=== PATIENT | female | born 1955 | race Caucasian/White ===

== ENCOUNTER 2017-10-24 05:48 | Day surgery (SDC) | payer BC ==
[2017-10-23 14:54] LABS: BASOPHILS % (AUTO) 0.5 % (0.0-2.0); EOSINOPHILS % (AUTO) 0.6 % (0.0-4.0); HEMATOCRIT 41.1 % (36-48); HEMOGLOBIN 13.6 g/dL (12.0-16.0); LYMPHOCYTES # (AUTO) 3.5 K/uL (1.0-5.5); LYMPHOCYTES % (AUTO) 45.5 % (20.5-51.5); MEAN CORPUSCULAR HEMOGLOBIN 30 pg (27-31); MEAN CORPUSCULAR HGB CONC 33 % (32-36); MEAN CORPUSCULAR VOLUME 90 fL (79.0-98.0); MONOCYTES # (AUTO) 0.7 K/uL (0.0-1.0); MONOCYTES % (AUTO) 8.7 % (1.7-9.3); NEUTROPHILS # (AUTO) 3.5 K/uL (1.8-7.7); NEUTROPHILS % (AUTO) 44.7 % (40.0-70.0); PLATELET COUNT (AUTO) 277 K/uL (130-430); RED BLOOD CELL COUNT(AUTO) 4.56 MIL/uL (4.2-6.2); RED CELL DISTRIBUTION WIDTH 12.5 % (9.0-15.0); WHITE BLOOD COUNT (AUTO) 7.7 K/uL (4.8-10.8)
[2017-10-23 15:28] LABS: ALBUMIN 4.1 g/dL (3.4-4.8); CALCIUM 9.8 mg/dL (8.4-11.0); CREATININE 0.78 mg/dL (0.55-1.30); POTASSIUM 3.9 mmol/L (3.5-5.1); TOTAL BILIRUBIN 0.3 mg/dL (0.0-1.0)
[2017-10-23 15:33] LABS: INR 0.9 (0.8-1.2); PROTHROMBIN TIME 9.6 SECS (9.5-12.5)
[2017-10-23 16:03] LABS: BILIRUBIN,URINE NEGATIVE (NEGATIVE); BLOOD, URINE NEGATIVE (NEGATIVE); CLARITY/URINE CLEAR (CLEAR); COLOR,URINE YELLOW (YELLOW); GLUCOSE,URINE NEGATIVE (NEGATIVE); KETONES,URINE NEGATIVE (NEGATIVE); LEUKOCYTE ESTERASE ,URINE NEGATIVE (NEGATIVE); NITRITE, URINE NEGATIVE (NEGATIVE); PROTEIN URINE NEGATIVE (NEGATIVE); UROBILINOGEN,URINE 0.2 (0.2-1.0)
[~2017-10-24] VITALS: Ht 172.7 cm; Wt 52.2 kg
[2017-10-24] MEDS ORDERED: CEFAZOLIN 2 GM IVPB PREMIX 50 ML IV ONE ×2 (06:53→11:00)
[2017-10-24] MEDS ORDERED: fentaNYL CITRATE/PF 100 MCG/2 ML AMP IVP ONE (07:13)
[2017-10-24] MEDS ORDERED: NORMAL SALINE 10 ML VIAL IVP ONE (07:13)
[2017-10-24] MEDS ORDERED: METOCLOPRAMIDE HCL 10 MG/2 ML VIAL IVP ONE (07:13)
[2017-10-24] MEDS ORDERED: DEXAMETHASONE SOD PHOSPHATE 4 MG/ML VIAL IVP ONE (07:13)
[2017-10-24] MEDS ORDERED: NS IRRIG SOLN 1000 ML IR ONE (07:13)
[2017-10-24] MEDS ORDERED: LR 1,000 ML IV.SOLN IV ONE (07:13)
[2017-10-24] MEDS ORDERED: SEVOFLURANE 15 MIN GAS INH ONE (07:13)
[2017-10-24] MEDS ORDERED: MIDAZOLAM HCL 5 MG/5 ML VIAL IVP ONE (07:13)
[2017-10-24] MEDS ORDERED: PROPOFOL 200MG/ 20ML VIAL (DIPRIVAN) IV ONE (07:13)
[2017-10-24] MEDS ORDERED: PHENYLEPHRINE HCL 10 MG/ML VIAL (NEOSYNEPHRINE) IV ONE (07:13)
[2017-10-24] MEDS ORDERED: LR 1,000 ML IV ONE (08:05)
[2017-10-24] MEDS ORDERED: fentaNYL CITRATE/PF 100 MCG/2 ML AMP IVP PRN (08:15)
[2017-10-24] MEDS ORDERED: ONDANSETRON HCL 4 MG/2 ML VIAL IVP PRN ×2 (08:15)
[2017-10-24] MEDS ORDERED: KETOROLAC TROMETHAMINE 30 MG VIAL IM PRN (08:15)
[2017-10-24] MEDS ORDERED: DIPHENHYDRAMINE INJ 50 MG/ML VIAL IVP PRN (08:15)
[2017-10-24] MEDS ORDERED: NALOXONE HCL 0.4 MG/ML AMP (NARCAN) IVP PRN (08:15)
[2017-10-24] MEDS ORDERED: ePHEDrine sulfate 50 MG/ML VIAL IVP PRN (08:15)
[2017-10-24] MEDS ORDERED: NALBUPHINE HCL 10 MG/ML AMP IVP PRN (08:15)
[2017-10-24] MEDS ORDERED: HYDROcodone/ACETAMIN 5-325 MG TAB (NORCO/ VICODIN) PO PRN ×2 (08:45)
[2017-10-24] MEDS ORDERED: PROMETHAZINE HCL 25 MG/ML AMP IM PRN (08:45)
[2017-10-24 09:48] VITALS: BP_SYST 100
== END 2017-10-24 10:45 | disposition home or self-care (01) ==
LOC: SMU 05:48 → SDS 05:48
PROVIDERS: ATTEND Obstetrics & Gynecology Gynecology
DX: N84.0 Polyp of corpus uteri (principal); M81.0 Age-related osteoporosis without current pathological fracture; Z98.890 Other specified postprocedural states
CPT/HCPCS: 36415; 58558; 71046; 80053; 81003; 85025; 85610; 85730; 86886; 86900; 86901; 88305; 93005; C1819; J0690; J1100; J2250; J2370; J2704; J2765; J3010; J7120